=== PATIENT | male | born 2000 ===

== ENCOUNTER 2021-05-10 12:56 | Emergency (ER) | payer SELFPAY ==
[~2021-05-10] VITALS: Ht 170.2 cm; Wt 88.8 kg
[2021-05-10 12:57] VITALS: BP 129/64
== END 2021-05-10 13:16 | disposition left against medical advice (07) ==
LOC: M ED 12:56
DX: Z53.21 Procedure and treatment not carried out due to patient leaving prior to being seen by health care provider (principal)